=== PATIENT | female | born 1980 | race Caucasian/White ===

== ENCOUNTER 2018-06-06 07:34 | Emergency (ER) | payer SELFPAY ==
[2018-06-06 07:45] VITALS: BP 120/79; PULSE 118; RESP 20; TEMP 37.3; O2SAT 100; BMI 23.1
[2018-06-06 09:04] LABS: Basophils Percent Auto 0.3 % (0-2); Eosinophils Percent Auto 0.5 % (2-4); Hemoglobin 7.1 g/dL (12.0-16.0); Lymphocytes Percent Auto 6.3 % (25-40); Mean Corpuscular HGB Conc 30.7 % (30-36); Mean Corpuscular Hemoglobin 18.6 PG (26-34); Mean Corpuscular Volume 60.6 fL (80-100); Monocytes Percent Auto 9.8 % (3-14); Neutrophils Absolute Auto 7300 /uL (3000-5900); Neutrophils Percent Auto 83.1 % (50-75); Red Blood Cell Count 3.81 X10^6/uL (4.0-5.2); Red Cell Distribution Width 19.9 % (11.6-14.8); White Blood Cell Count 8.8 X10^3/uL (4.5-11.0)
[2018-06-06 09:06] LABS: Hematocrit 23.1 % (36-46)
[2018-06-06 09:07] LABS: Add Manual Diff / Slide Review SLIDE REVIEW; Platelet Count 169 X10^3/uL (150-400)
[2018-06-06 09:12] LABS: Lactate (Lactic Acid) 1.7 mmol/L (0.7-2.1)
[2018-06-06 09:13] LABS: Blood Urea Nitrogen 9 mg/dL (7-17); Calcium 8.8 mg/dL (8.4-10.2); Carbon Dioxide 27 mmol/L (22-32); Chloride 102 mmol/L (98-107); Estimated Glomerular Filt Rate > 60.0 mL/min (>60); Glucose 88 mg/dL (70-100); HEMOLYSIS < 15 (0-50); Potassium 3.5 mmol/L (3.4-5.1); Sodium 140 mmol/L (137-145)
[2018-06-06 09:27] LABS: Anisocytosis 2+; Hypochromasia 2+; Microcytosis 2+
[2018-06-06] MEDS: SODIUM CHLORIDE 0.9% 1,000 ML 200 ML IV (09:28)
[2018-06-06] MEDS: KETOROLAC 60 MG/2 ML VIAL 30 MG IV (09:29)
[2018-06-06] MEDS: MORPHINE 2 MG/ML INJ IV (09:29)
[2018-06-06 09:33] LABS: Procalcitonin < 0.05 ng/mL (<0.5)
[2018-06-06] MEDS: VANCOMYCIN 1,000 MG/200 ML FROZ.PIGGY 200 MG IV (10:18)
[2018-06-06 10:33] VITALS: BP 105/74; PULSE 81; RESP 18; O2SAT 100
--- NOTE | 2018-06-06 10:50 | ED_ITS ---
HPI - Skin/Abscess/Foreign Bdy General Chief complaint: Skin/Abscess/Foreign Body Stated complaint: BUMP ON BUTTOCKS,PUS/PAIN Time Seen by Provider: 06/06/18 07:58 Source: patient Mode of arrival: ambulatory Limitations: no limitations History of Present Illness HPI narrative: Patient is a 37-year-old female who presents with of left buttock pain. She says she started to notice some swelling all 2 days ago however today the swelling was significantly worse and she has extreme pain. No history of abscesses. No history of MRSA. Not had fever or chills MD complaint: abscess/boil Onset (ago): minute(s) (2) Related Data Previous Rx's Medication Instructions Recorded ferrous sulfate 325 mg PO BID #60 tab 06/06/18 sulfamethoxazole-trimethoprim 1 tab PO BID #14 tab 06/06/18 [Bactrim DS] Allergies Allergy/AdvReac Type Severity Reaction Status Date / Time No Known Drug Allergies Allergy Verified 06/06/18 07:50 Review of Systems Review of Systems GENERAL: Denies chills, fatigue, malaise, fever, sweats, travel HEENT: Denies sinus pain, ear pain, sore throat, difficulty swallowing, neck pain RESPIRATORY: Denies dyspnea, cough, wheezing, hemoptysis, sputum. CARDIOVASCULAR: Denies chest pain, palpitations, orthopnea, edema GASTROINTESTINAL: Denies nausea, vomiting, abdominal pain, diarrhea, constipation, melena. : Denies dysuria, frequency, incontinence, hematuria, urinary retention, flank pain. MUSCULOSKELETAL: Denies weakness, joint pain, or bony pain SKIN: See HPI NEUROLOGIC: Denies weakness, dizziness, headache, numbness, change in speech, confusion PSYCHIATRIC: No concerning psychosocial issues. 12 point review of systems is negative except for those stated above and HPI PFSH Medical History Anemia (Acute) Healthy adult (Acute) Surgical History H/O tubal ligation (Acute) Social History Smoking Status: Former smoker Exam Initial Vital Signs Initial Vital Signs: Vital Signs Temperature 99.2 F 06/06/18 07:45 Pulse Rate 118 H 06/06/18 07:45 Respiratory Rate 20 06/06/18 07:45 Blood Pressure 120/79 06/06/18 07:45 Pulse Oximetry 100 06/06/18 07:45 GENERAL: Well-appearing, well-nourished and in no acute distress. HEENT: Head atraumatic,EOMI, pupils reactive, neck is supple no meningeal sign CARDIOVASCULAR: Regular rate and rhythm without murmurs, rubs or gallops. RESPIRATORY: Breath sounds equal bilaterally, no wheezes rales or rhonchi. ABDOMEN: Soft, nontender. Normoactive bowel sounds all 4 quadrants. EXTREMITIES: Normal range of motion, no clubbing or edema. Neurovascularly intact NEUROLOGICAL: Alert and oriented x4.Normal gait and speech. SKIN: Left buttock has induration 10 cm x 8 cm with small area of some fluctuation at 3 x 2 cm and scabbing Procedures Abscess I/D Site: other (Left buttock) Side (if applicable): left Local Anesthetic: lidocaine 1% and with epi Technique: incised with #11 blade Amount of fluid expressed (mL): 10 Irrigation: Yes Packing used?: none Complications: pain and bleeding Course Orders Ordered: ED Orders 06/06/18 08:30 Basic Metabolic Panel Stat Complete Blood Count AUTO DIFF Stat Lactate (Lactic Acid) Stat Procalcitonin Stat 06/06/18 09:33 Blood Culture Stat 06/06/18 12:26 Wound Culture and Gram Stain Stat Discontinued Medications Vancomycin HCl/Dextrose (Vancomycin) 1,000 mg in 200 mls @ 200 mls/hr IV NOW ONE Stop: 06/06/18 09:33 Last Infusion: 06/06/18 11:33 Dose: 0 mls/hr Admin: 06/06/18 10:18 Dose: 200 mls/hr Sodium Chloride (Normal Saline 0.9%) 1,000 mls @ 200 mls/hr IV CONT MAURICE Last Infusion: 06/06/18 11:34 Dose: 0 mls/hr Admin: 06/06/18 09:28 Dose: 200 mls/hr Ketorolac Tromethamine (Toradol) 30 mg IV NOW ONE Stop: 06/06/18 08:35 Last Admin: 06/06/18 09:29 Dose: 30 mg Morphine Sulfate (Morphine) 2 mg IV NOW ONE Stop: 06/06/18 08:35 Last Admin: 06/06/18 09:29 Dose: 2 mg Vital Signs - 8 hr 06/06/18 07:45 06/06/18 10:33 Temperature 99.2 F Pulse Rate 118 H 81 Respiratory Rate 20 18 Blood Pressure 120/79 Blood Pressure [Left Arm] 105/74 Pulse Oximetry 100 100 MDM - Skin/Abscess/Foreign Bdy Lab Data Result diagrams: 06/06/18 08:30 06/06/18 08:30 Lab Results 06/06/18 06/06/18 06/06/18 Range/Units 08:30 08:30 08:30 WBC 8.8 (4.5-11.0) X10^3/uL RBC 3.81 L (4.0-5.2) X10^6/uL Hgb 7.1 L (12.0-16.0) g/dL Hct 23.1 L (36-46) % MCV 60.6 L (80-100) fL MCH 18.6 L (26-34) PG MCHC 30.7 (30-36) % RDW 19.9 H (11.6-14.8) % Plt Count 169 (150-400) X10^3/uL Neut % (Auto) 83.1 H (50-75) % Lymph % (Auto) 6.3 L (25-40) % [place] % (Auto) 9.8 (3-14) % Eos % (Auto) 0.5 L (2-4) % Baso % (Auto) 0.3 (0-2) % Neut # (Auto) 7300 H (2191-1736) /uL RBC Morphology Not Reportable Hypochromasia 2+ H Anisocytosis 2+ H Microcytosis 2+ H Sodium 140 (137-145) mmol/L Potassium 3.5 (3.4-5.1) mmol/L Chloride 102 (98-107) mmol/L Carbon Dioxide 27 (22-32) mmol/L BUN 9 (7-17) mg/dL Creatinine 0.60 (0.52-1.04) mg/dL Estimated GFR > 60.0 (>60) mL/min BUN/Creatinine Ratio 15.0 (6-22) Glucose 88 (70-100) mg/dL Lactate (0.7-2.1) mmol/L Calcium 8.8 (8.4-10.2) mg/dL Procalcitonin < 0.05 (<0.5) ng/mL 06/06/18 Range/Units 08:30 WBC (4.5-11.0) X10^3/uL RBC (4.0-5.2) X10^6/uL Hgb (12.0-16.0) g/dL Hct (36-46) % MCV (80-100) fL MCH (26-34) PG MCHC (30-36) % RDW (11.6-14.8) % Plt Count (150-400) X10^3/uL Neut % (Auto) (50-75) % Lymph % (Auto) (25-40) % [place] % (Auto) (3-14) % Eos % (Auto) (2-4) % Baso % (Auto) (0-2) % Neut # (Auto) (8012-5093) /uL RBC Morphology Hypochromasia Anisocytosis Microcytosis Sodium (137-145) mmol/L Potassium (3.4-5.1) mmol/L Chloride (98-107) mmol/L Carbon Dioxide (22-32) mmol/L BUN (7-17) mg/dL Creatinine (0.52-1.04) mg/dL Estimated GFR (>60) mL/min BUN/Creatinine Ratio (6-22) Glucose (70-100) mg/dL Lactate 1.7 (0.7-2.1) mmol/L Calcium (8.4-10.2) mg/dL Procalcitonin (<0.5) ng/mL MDM Narrative Medical decision making narrative: Patient is noted to have microcytic anemia. She states she is aware of the anemia but not taking any iron. Is pain overall is improving slightly said Kieran Anthony Recommend she ? Discharge Plan Departure Patient Disposition: Home Clinical Impression: Abscess of skin or subcutaneous tissue, Anemia Discharge Date/Time: 06/06/18 12:00 Interventions: ED Discharge Assessment Last Done: 06/06/18 11:58 Instructions: DI for Iron Deficiency Anemia-Adult, DI for Skin Abscess Activity Restrictions/Additional Instructions: *You have been diagnosed with abscess *What to do: Keep clean and dry, use soap and water, may use warm compresses or warm bath Expect to have some pain and discomfort but it should overall be improving *Continue to take medications as directed Bactrim 1 pill twice a day for 7 days *Follow up with your primary care provider in 2-3 days *Return to ER if you should have fever, worsening pain, increasing redness or any new, worsening or concerning symptoms Prescriptions: New sulfamethoxazole-trimethoprim [Bactrim DS] 800-160 mg tablet 1 tab PO BID Qty: 14 RF: 0 ferrous sulfate 325 mg (65 mg iron) tablet 325 mg PO BID Qty: 60 RF: 0 Referrals: [facility] [Outside] [facility] [Outside] [facility] [Outside]
== END 2018-06-06 12:00 | disposition home or self-care (01) ==
PROVIDERS: Emergency Provider Emergency Medicine
DX: L02.31 Cutaneous abscess of buttock (principal); D64.9 Anemia, unspecified
CPT/HCPCS: 10060; 36415; 36591; 80048; 81025; 83605; 84145; 85025; 87040; 87070; 87077; 87147; 87205; 96361; 96365; 96375; 99283; 99284; J1885; J2270; J3370